=== PATIENT | male | born 1955 | race Hispanic/Latino ===

== ENCOUNTER 2019-06-18 19:18 | Emergency (ER) | payer BC, OTHER ==
[2019-06-18 19:50] LABS: #Lymphocytes 1.4 thou/uL (1.20-3.40); #Monocytes 1.4 thou/uL (0.11-0.59); #Neutrophils 14.4 thou/uL (1.40-6.50); %Basophils 0.1 % (0.0-1.0); %Eosinophils 0.1 % (0.0-10.0); %Lymphocytes 8.1 % (21.0-51.0); %Monocytes 8.3 % (0.0-10.0); %Neutrophils 83.4 % (42.0-75.0); Hemoglobin 14.9 g/dL (14.0-18.0); Mean Corpuscular HGB CONC 32.6 g/dL (32.0-36.0); Mean Corpuscular Hemoglobin 30.8 pg (27.0-31.0); Mean Corpuscular Volume 94.4 fL (78.0-98.0); Mean Platelet Volume 8.3 fL (7.4-10.4); Platelet Count 161 thou/uL (130-400); RBC Distribution Width 12.2 % (11.5-14.5); Red Blood Cell (RBC) Count 4.85 mill/uL (4.70-6.10); White Blood Cell (WBC) Count 17.2 thou/uL (4.8-10.8)
[2019-06-18 20:05] LABS: Bilirubin Negative (Negative); Blood, Urine 2+ (Negative); Clarity Turbid (Clear); Glucose, Urine (Dipstick) 30 mg/dL (Negative); Leukocyte 500 Leu/uL (Negative); Nitrite Negative (Negative); Protein, Urine (Dipstick) 100 mg/dL (Neg-Trace); RBC/HPF 21-50 HPF (0-3); Squamous Epithelial 0-3 HPF (0-3); Urobilinogen Normal mg/dL (Less than 2); WBC/HPF Greater than 50 HPF (0-3)
[2019-06-18 20:06] LABS: Bacteria/HPF 1+ HPF (None Seen)
[2019-06-18 20:07] LABS: ALT (SGPT) 26 U/L (8-55); AST (SGOT) 12 U/L (5-34); Albumin 4.3 g/dL (3.4-4.8); Alkaline Phosphatase 60 U/L (40-110); Anion Gap 14 mmol/L (10-20); BUN (Urea Nitrogen) 12 mg/dL (8.4-25.7); Bilirubin, Total 1.2 mg/dL (0.2-1.2); Calc. Creatinine Clearance 0 mL/min (70-130); Calcium 9.6 mg/dL (7.8-10.44); Carbon Dioxide 24 mmol/L (23-31); Chloride 99 mmol/L (98-107); Estimated GFR-MDRD Greater than 90; Globulin 3.1 g/dL (2.4-3.5); Glucose 175 mg/dL (80-115); Potassium 3.6 mmol/L (3.5-5.1); Protein, Total 7.4 g/dL (5.8-8.1)
[2019-06-18 20:16] LABS: Sodium 133 mmol/L (136-145)
[2019-06-18] MEDS ORDERED: cefTRIAXone\\ROCEPHIN 1 GM VIAL ONE (20:23)
[2019-06-18] MEDS ORDERED: Sodium Chloride 0.9% 100 ML ONE (20:23)
[2019-06-18] MEDS ORDERED: Azithromycin 500 MG VIAL ONE (20:23)
--- NOTE | 2019-06-18 20:32 | CT ---
CT THORAX WITHOUT IV CONTRAST: History: Sternal chest pain with onset of symptoms three days ago. The patient reports fever and diap horesis. Comparison: CTA chest, 04-14-2008 FINDINGS: Lack of intravenous contrast limits evaluation for vascular structures as well as mediastinum. Howeve r, there is ectasia to mild dilatation of the ascending thoracic aorta which measures 4.5 cm in AP di mension. Descending thoracic aorta is normal in caliber. No enlarged lymph nodes are seen by CT size criteria. The lungs are clear. No pulmonary nodule, mass or pleural effusion is identified. There is bronchiect asis in left lung base with suggestion of minimal bronchiectasis posterior aspect left lower lobe. A 2 cm hypodense lesion is seen in the superior pole right kidney which is difficult to characterize on this nonenhanced CT exam. Mild scattered degenerative change seen in the thoracic spine. No suspicious lytic or sclerotic osseo us lesions are seen. Specifically, the sternum demonstrates a normal CT appearance. IMPRESSION: 1. No acute findings are seen on this nonenhanced CT scan of the thorax. 2. Ectasia\mild dilatation of the ascending thoracic aorta measuring 4.5 cm. Ascending thoracic aorta on prior exam in 2008 measured 4.4 cm. 3. Hypodense superior pole right renal lesion which is difficult to characterize on this nonenhanced CT exam. Nonemergent renal ultrasound is suggested for further evaluation. POS: JAMARCUS
[2019-06-19 10:04] LABS: SARS-CoV-2 MS2 Positive; SARS-CoV-2 N Gene Negative; SARS-CoV-2 S Gene Negative; SARS-CoV-2 orf1ab Negative
--- NOTE | 2019-06-20 13:26 | EKG ---
Test Reason : Blood Pressure : / mmHG Vent. Rate : 102 BPM Atrial Rate : 102 BPM P-R Int : 150 ms QRS Dur : 094 ms QT Int : 328 ms P-R-T Axes : 055 -18 017 degrees QTc Int : 427 ms Sinus tachycardia Otherwise normal ECG Confirmed by FELY HERRERA ([id number]), photograph editor ANETA OSEGUERA ([id number]) on 06/20/2019 1:25:44 PM Referred By: Confirmed By:FELY HERRERA
== END 2019-06-18 22:23 | disposition home or self-care (01) ==
LOC: ERS 19:18
DX: N39.0 Urinary tract infection, site not specified (principal); R07.9 Chest pain, unspecified; I10 Essential (primary) hypertension; E11.9 Type 2 diabetes mellitus without complications; Z79.84 Long term (current) use of oral hypoglycemic drugs
CPT/HCPCS: 36415; 71250; 80053; 81003; 81015; 83605; 84484; 85025; 87040; 87635; 93005; 96361; 96365; 96367; J0456; J0696; J3490; U0002

== ENCOUNTER 2021-08-31 11:18 | Outpatient (CLI) | payer MEDICARE, BC | END 2021-08-31 11:19 | disposition home or self-care (01) | LOC: BICRAD 11:18 | PROVIDERS: ATTEND Internal Medicine Rheumatology | DX: M16.0 Bilateral primary osteoarthritis of hip (principal) | CPT/HCPCS: 73523 ==